=== PATIENT | male | born 1955 | race Caucasian/White ===

== ENCOUNTER → 2016-10-19 | Outpatient (CLI) | payer OTHER ==
--- NOTE | 2016-10-27 09:18 | SS ---
ADMIT: 10/19/2016 RM/LOC: [facility] MR#: [id number] [place], [place] [id number] LEANN SHAWN R [address] [place] [address] Sleep Study SEX: M AGE: 61 : 1955 STUDY DATE: 10/19/2016 REFERRING PHYSICIAN: Kwesi Mcclendon MD CLINICAL HISTORY: A 61-year-old male, body mass index 29.3, 71 inches tall, 210 pounds, who was undergoing evaluation for obstructive sleep apnea. HOME SLEEP STUDY FINDINGS: RECORDING INFORMATION: Recording date is 10/19/2016. Bedtime starts 11:00 p.m. Bedtime ends 07:08 a.m. Time in bed 8 hours and 1 minute. NOX-T3 home sleep study device was used with good signal quality. BREATHING: Severe obstructive sleep apnea with apnea-hypopnea index of 33.4. OXYGEN SATURATION: Average oxygen saturation is 90%. CARDIAC: Average pulse is 82 beats per minute. BODY POSITION: The patient slept predominantly in supine position with no significant time in lateral position. IMPRESSION/PLAN: Severe positional obstructive sleep apnea with apnea of 33.4. Recommend in-lab CPAP titration. Recommend losing weight. Recommend avoiding sedative and alcohol. Recommend refrain from driving if excessively sleepy. Recommend avoiding sleeping in supine position. Clinical correlation needed. Jeferson Estrella MD/ enmanuell JOB #: [id number] CC: Slade Alanis MD, Attending Physician Slade Alanis MD, Family Physician Slade Alanis MD
== END | disposition home or self-care (01) ==
LOC: CARD 10:51
DX: G47.30 Sleep apnea, unspecified (principal); E66.9 Obesity, unspecified